=== PATIENT | female | born 1930 | race Caucasian/White ===

== ENCOUNTER 2017-03-07 08:48 | Emergency (ER) | payer MEDICARE, OTHER ==
--- NOTE | ~2017-03-07 | EKG ---
PATIENT: PRINCESS STERLING UNIT #: [id number] Ventricular Rate: 63 BPM Atrial Rate: 375 BPM QRS Duration: 92 ms Q-T Interval: 394 ms QTC Calculation(Bezet): 403 ms Calculated R Porum: 9 degrees Calculated T Porum: 17 degrees Diagnosis Line: Atrial fibrillation Diagnosis Line: Low voltage QRS Diagnosis Line: Incomplete right bundle branch block Diagnosis Line: Abnormal ECG Diagnosis Line: When compared with ECG of 28-SEP-2015 13:13, Diagnosis Line: Nonspecific T wave abnormality, improved in Diagnosis Line: Inferior leads Diagnosis Line: T wave inversion no longer evident in Anterior Diagnosis Line: leads Diagnosis Line: Confirmed by SAMEER DRAPER MD ([id number]) on 03/08/2017 Diagnosis Line: 6:04:00 AM INTERPRETING MD: BONNY RASMUSSEN
--- NOTE | ~2017-03-07 | CR72 ---
[facility] A Service of [facility] & [facility] / [facility] RADIOLOGY TEXT RESULTS PATIENT: PRINCESS STERLING LOCATION: [facility] : [birth year] UNIT #: [id number] AGE: [address]: Gelacio Rivera MD SEX: F ORDER DR: [id number] [facility] [address] [place], [place] [address] [id number] E MR#: [id number] Acc #: [id number] NAME: PRINCESS STERLING : 1930 SEX: F STUDY DATE/TIME: 03/07/2017 8:29 UNIT: [facility] ROOM: STUDY DESCRIPTION: CR Chest Single View Portable Attending Physician: Gelacio Rivera M.D. Ordering Physician: Gelacio Rivera M.D. Primary Care Physician: Cj Larios M.D. MEDICAL IMAGING REPORT This report is preliminary unless electronic signature is present EXAM AP portable chest 03/07/2017 HISTORY 86-year-old female in the ED complaining of new onset shortness of air today. TECHNIQUE AP portable chest x-ray. FINDINGS Mild cardiomegaly. Pulmonary vascularity is normal. The lungs appear clear. No visible pulmonary infiltrate or pleural effusion. Stable tortuous descending thoracic aorta. Advanced chronic degenerative arthropathy right shoulder. No change since 09/24/2015. IMPRESSION No active disease. No change since 09/24/2015. Dictated by... David Deutsch M.D. THIS IS AN ELECTRONICALLY VERIFIED REPORT David Deutsch M.D. at 03/07/2017 1:32 PM CAITLIN/cruz TD: 03/07/2017 10:10 JOB #: [id number] MEDICAL IMAGING REPORT Page 1 of 1 COPY
[~2017-03-07 08:48] MED LIST: ALBUTEROL17 GM INH; BUMEX1 MG PO; CLINDAMYCIN HC300 MG PO; COMBIVENT MININEB INH; K-DUR10 MEQ PO; LATANOPROST2.5 ML OP; LORTAB 5-325 M1 EACH PO; METOPROLOL SUCC50 MG PO; METOPROLOL TAR25 MG PO; PATADAY2.5 ML OP; PATADAY2.5 ML OU; PERCOCET5/325 PO; TIMOPTIC 0.5% OP5 M1 OD; TIMOPTIC 0.5% OP5 M2 OD; TRAVATAN Z5 ML OU; [UNRECOGNIZED DRUG - OTHER]; [UNRECOGNIZED DRUG - OTHER]
[2017-03-07 09:26] LABS: POC - CKMB 1.3 ng/mL (0.0-7.9); POC - TROPONIN <0.05 ng/mL (<=0.05)
[2017-03-07 09:42] LABS: BASOPHIL# 0.1 X10e3 (0-0.3); BASOPHIL% 0.8 % (0-2.5); EOSINOPHIL# 0.2 X10e3 (0-0.7); EOSINOPHIL% 1.9 % (0.0-7.0); HEMATOCRIT 43.1 % (35.0-45.0); HEMOGLOBIN 14.1 gm/dL (12.0-16.0); LYMPHOCYTE# 3.1 X10e3 (1.0-3.5); LYMPHOCYTE% 29.4 % (17.0-45.0); MEAN CORPUSCULAR HGB CONC 32.7 g/dL (30-36); MONOCYTE# 1.2 X10e3 (0-1.0); MONOCYTE% 11.4 % (3.0-12.0); NEUTROPHIL% 56.5 % (40-75); PLATELET COUNT 153 X10e3 (140-420); RED BLOOD COUNT 4.27 X10e (3.90-5.30); WHITE BLOOD COUNT 10.6 X10e3 (4.0-10.5)
[2017-03-07 09:53] LABS: PROTHROMBIN TIME (PATIENT) 10.3 SECONDS (9.6-11.5)
[2017-03-07 09:57] LABS: DIFF IND NO
[2017-03-07 10:04] LABS: ALBUMIN SERUM 3.7 g/dL (3.5-5.0); BILIRUBIN, DIRECT 0.2 mg/dL (0.0-0.2); BILIRUBIN,INDIRECT 0.2 mg/dL (0.0-0.9); BILIRUBIN,TOTAL 0.4 mg/dL (0.2-2.0); CREATININE SERUM 0.8 mg/dL (0.6-1.4); GLOM FILT RATE Estimated 65.9 mL/min (>60); POTASSIUM 3.9 mmol/L (3.5-5.1); PROTEIN TOTAL SERUM 7.7 g/dL (6.0-8.3)
== END 2017-03-07 11:36 | disposition home or self-care (01) ==
LOC: CED 08:48
PROVIDERS: Emergency Medicine
DX: I11.0 Hypertensive heart disease with heart failure (principal); I10 Essential (primary) hypertension; F17.210 Nicotine dependence, cigarettes, uncomplicated; Z79.899 Other long term (current) drug therapy; Z88.2 Allergy status to sulfonamides
CPT/HCPCS: 36415; 71010; 80048; 80076; 82553; 83605; 83880; 84484; 85025; 85610; 87040; 93005; 99284